=== PATIENT | female | born 1985 | race Caucasian/White ===

== ENCOUNTER → 2016-09-08 | Outpatient (CLI) | payer OTHER ==
[~2016-09-08] MED LIST: MEDR4PAK3 PO; PRENCAP6 PO; ZITH250T PO
[2016-09-08 12:49] LABS: BETA HCG QUANT 4033 MIU/ML (0-5)
== END ==
LOC: CLAB 11:51
PROVIDERS: ATTEND Obstetrics & Gynecology
DX: O26.20 Pregnancy care for patient with recurrent pregnancy loss, unspecified trimester (principal); Z32.00 Encounter for pregnancy test, result unknown
CPT/HCPCS: 36415; 84144; 84702

== ENCOUNTER → 2016-09-16 | Outpatient (CLI) | payer OTHER ==
[2016-09-16 11:03] LABS: AUTOMATED NEUTROPHIL # 4.5 TH/MM3 (1.8-7.7); BASOPHIL % 0.4 % (0.0-2.0); EOSINOPHIL % 0.3 % (0.0-4.0); HEMATOCRIT 38.9 % (35.0-46.0); HEMO FLAGS DIFF FINAL; LYMPH % 22.7 % (9.0-44.0); LYMPHOCYTE # 1.4 TH/MM3 (1.0-4.8); MEAN CELL VOLUME 93.5 FL (80.0-100.0); MEAN CORPUSCULAR HGB CONC 33.2 % (32.0-36.0); NEUT % 71.6 % (16.0-70.0); PLATELET COUNT 247 TH/MM3 (150-450); RED BLOOD COUNT 4.16 MIL/MM3 (4.00-5.30); RED CELL DISTRIBUTION WIDTH 12.4 % (11.6-17.2); WHITE BLOOD COUNT 6.2 TH/MM3 (4.0-11.0)
[2016-09-16 11:07] LABS: BLOOD, URINE NEG (NEG); GLUCOSE,URINE NEG (NEG); KETONE, URINE NEG (NEG); NITRITE,URINE NEG (NEG); SQUAMOUS EPITHELIAL CELL URINE <1 /hpf (0-5); URINE COLOR YELLOW (YELLW/STRAW)
[2016-09-16 11:08] LABS: COMMENT (UR) CULT NOT INDICATED; CULTURE IF INDICATED CULT NOT INDICATED
[2016-09-16 11:40] LABS: RUBELLA IGG ANTIBODY 85.2 IU/mL (10.0-500.0); RUBELLA STATUS IMMUNE (IMMUNE)
[2016-09-16 11:47] LABS: FREE T4 0.95 NG/DL (0.76-1.46)
[2016-09-17 09:45] LABS: RAPID PLASMA REAGIN SCREEN NON-REACTIVE (NON-REACTVE)
== END ==
LOC: CLAB 10:20
PROVIDERS: ATTEND Obstetrics & Gynecology
DX: Z13.9 Encounter for screening, unspecified (principal); Z11.4 Encounter for screening for human immunodeficiency virus [HIV]; Z13.228 Encounter for screening for other metabolic disorders; Z33.1 Pregnant state, incidental
CPT/HCPCS: 36415; 81001; 84439; 84443; 84480; 85025; 86592; 86703; 86762; 86850; 86900; 86901; 87340

== ENCOUNTER → 2016-10-29 | Outpatient (CLI) | payer OTHER | LOC: HPND 09:04 | PROVIDERS: ATTEND Obstetrics & Gynecology | DX: O03.4 Incomplete spontaneous abortion without complication (principal) | CPT/HCPCS: 36416; 76813 ==

== ENCOUNTER → 2016-12-02 | Outpatient (CLI) | payer OTHER | LOC: HPND 09:11 | PROVIDERS: ATTEND Obstetrics & Gynecology | DX: O44.42 Low lying placenta NOS or without hemorrhage, second trimester (principal); Z3A.17 17 weeks gestation of pregnancy | CPT/HCPCS: 76805 ==

== ENCOUNTER → 2017-01-26 | Outpatient (CLI) | payer OTHER | LOC: HPND 07:46 | PROVIDERS: ATTEND Obstetrics & Gynecology | DX: O44.42 Low lying placenta NOS or without hemorrhage, second trimester (principal); Z3A.25 25 weeks gestation of pregnancy | CPT/HCPCS: 76816; 76817 ==

== ENCOUNTER → 2017-02-06 | Outpatient (CLI) | payer OTHER ==
[2017-02-06 11:11] LABS: HEMATOCRIT 35.8 % (35.0-46.0); MEAN CELL VOLUME 95.8 FL (80.0-100.0); MEAN CORPUSCULAR HEMOGLOBIN 32.9 PG (27.0-34.0); MEAN CORPUSCULAR HGB CONC 34.4 % (32.0-36.0); PLATELET COUNT 263 TH/MM3 (150-450); RED BLOOD COUNT 3.74 MIL/MM3 (4.00-5.30); RED CELL DISTRIBUTION WIDTH 13.2 % (11.6-17.2); REVIEW FLAG FINAL; WHITE BLOOD COUNT 9.6 TH/MM3 (4.0-11.0)
[2017-02-10 15:53] LABS: MEASLES AB IGG <25.00 AU/mL (<25.00)
[2017-02-10 23:51] LABS: MEASLES AB IGM <1:20 (<1:20)
== END ==
LOC: CLAB 09:52
PROVIDERS: ATTEND Obstetrics & Gynecology
DX: R74.0 Nonspecific elevation of levels of transaminase and lactic acid dehydrogenase [LDH] (principal); Z13.9 Encounter for screening, unspecified; Z33.1 Pregnant state, incidental
CPT/HCPCS: 36415; 82951; 85027; 86765

== ENCOUNTER → 2017-04-09 | Outpatient (CLI) | payer OTHER | LOC: HPND 09:39 | PROVIDERS: ATTEND Obstetrics & Gynecology | DX: O26.843 Uterine size-date discrepancy, third trimester (principal); O44.03 Complete placenta previa NOS or without hemorrhage, third trimester | CPT/HCPCS: 76816 ==

== ENCOUNTER 2017-05-01 10:22 | Inpatient (IN) | payer OTHER ==
[2017-05-01] VITALS (9 sets, daily range): BP systolic 106–121; BP diastolic 62–74; PULSE 69–91; RESP 18; TEMP 97.7–98.2; O2SAT 97
[~2017-05-01] VITALS: Ht 177.8 cm; Wt 79.4 kg
[2017-05-01] MEDS ORDERED: LACTATED RINGER'S 1000 ML INJ 1,000 ML IV PRN (11:03)
--- NOTE | 2017-05-01 11:13 | PD ---
HPI Chief Complaint LOF Date Seen: May 01, 2017 Time Seen: 11:06 Travel History International Travel<30 Days: No Contact w/Intl Traveler<30Days: No Known Affected Area: No History of Present Illness HPI Pt is a 32y/o @ 39.1wks. She has PNC with Dr. Akers. She presents reporting that she woke up this morning at 7am and had +LOF. She denies VB. Only occasional ctx which are not painful. +FM. No complications this preg. H /o PROM with G1 requiring IOL. GBS neg. Was 2cm/70 in clinic Thursday. Weeks Gestation: 39 Para: 1 : 3 History Past Medical History Medical History: Denies Significant Hx Obstetric History Obstetric History 1. @ term (PROM IOL) 2. SAB (D&C) 3. current Past Surgical History Narrative Surgical wisdom teeth extraction D&C Family History Family History: Negative Social History Alcohol Use: No Tobacco Use: No Substance Abuse: No Allergies-Medications (Allergen,Severity, Reaction): Coded Allergies: No Known Allergies (Verified , 02/12/16) Home Meds Active Scripts Azithromycin (Zithromax Z-Rakesh) 250 Mg Tab, 250 MG PO DIRECTED, #6 TAB 0 Refills 500 MG (2 TABLETS) PO ON DAY 1, THEN 250 MG (1 TABLET) PO ON DAYS 2 TO 5. Prov:Dinorah Trujillo 02/12/16 Methylprednisolone (Medrol Dosepak) 4 Mg Rakesh, 4 MG PO DIRECTED, #1 RAKESH 0 Refills TAKE DIRECTED Prov:Dinorah Trujillo 02/12/16 Reported Medications Mv & Min W/Fe Fumarat ( 1) Cap, 1 CAP PO, CAP 02/01/16 Review of Systems Except as stated in HPI: all other systems reviewed are Neg Physical Exam Narrative General: well developed, well nourished, no acute distress HEENT: normocephalic atraumatic, extraocular movements intact, neck supple Abdomen: soft, gravid, nontender, nondistended Uterus: fundus term Extremities: full range of motion Skin: normal coloration, no rashes, no suspicious skin lesions noted Neurologic: cranial nerves 2-12 grossly intact, normal muscle tone, normal gait Psychiatric: normal mood and affect, appropriate FHTs: 130s, +accels, early decel x1, moderate variability, reactive Lyman: irregular ctx q5-7m Cvx: 3/80/-2 Data Data Vital Signs Reviewed: Yes Orders Orders Ob (2e) Additional Admit Info (05/01/17 10:53) Vital Signs (Adult) .ON ADMISSION (05/01/17 11:03) ^ Labor Status (05/01/17 11:03) ^ Non Stress Test (05/01/17 11:03) Pamg-1 Test .ONCE (05/01/17 11:03) Admit To Inpatient (05/01/17 ) Vital Signs (Adult) .Per protocol (05/01/17 11:03) Heart (05/01/17 11:03) Amnioinfusion (05/01/17 11:03) Urinary Catheter Management .ONCE (05/01/17 11:03) Diet Liquid (05/01/17 Lunch) Lactated Ringer's 1000 Ml Inj (Lr 1000 M (05/01/17 11:03) Lactated Ringer's 1000 Ml Inj (Lr 1000 M (05/01/17 11:03) Sodium Chlorid 0.9% 500 Ml Inj (Ns 500 M (05/01/17 11:15) Sodium Chlor 0.9% 1000 Ml Inj (Ns 1000 M (05/01/17 11:23) Lidocaine 1% Inj (50 Ml) (Xylocaine 1% I (05/01/17 11:15) Citric Acid-Sodium Citrate Liq (Bicitra (05/01/17 11:15) Fentanyl Inj (Fentanyl Inj) (05/01/17 11:15) Fentanyl Inj (Fentanyl Inj) (05/01/17 11:15) Complete Blood Count With Diff (05/01/17 11:03) Hold Clot (05/01/17 11:03) Abo/Rh Blood Type (05/01/17 11:03) Urinalysis - C+S If Indicated (05/01/17 11:03) Drug Screen, Random Urine (05/01/17 11:03) Lidocaine 1% Inj (50 Ml) (Xylocaine 1% I (05/01/17 11:15) Light Mineral Oil (Muri-Lube Oil) (05/01/17 11:15) Inpatient Certification (05/01/17 ) Specimen To Be Collected PRN (05/01/17 11:03) Specimen To Be Collected PRN (05/01/17 11:03) Response To Medication .Post New Med Administration, Reaction (05/01/17 11:03) ^ Discontinue Medication (05/01/17 11:03) Oxytocin 30 Units-500ml Premix (Pitocin (05/01/17 11:15) Resp Oxygen Non Rebreathe Mask (05/01/17 ) ^ Epidural / Intrathecal Infus (05/01/17 11:03) Oxytocin 30 Units-500ml Premix (Pitocin (05/01/17 11:15) Group B Strep: Negative MDM Plan 32y/o @ 39.1wks with PROM -- admit to L&D -- clears, epidural/gardner PRN -- FHTs cat 2, moderate variability with early decel -- pitocin IOL -- GBS neg Dr. Bhardwaj (distributor sales consultant) notified of pt status and POC. He will assume care of the pt. Courtesy orders placed. Diagnosis Diagnosis: Primary Impression: 39 weeks gestation of Additional Impression: PROM (premature rupture of membranes) Milli Burkett MD May 01, 2017 11:13
[2017-05-01] MEDS ORDERED: OXYTOCIN 30 UNITS-500ML PREMIX 500 ML IV SCH ×2 (11:15→18:45)
[2017-05-01] MEDS ORDERED: CITRIC ACID-SODIUM CITRATE LIQ 30 ML UDC PO SCH (11:15)
[2017-05-01] MEDS ORDERED: OXYTOCIN 30 UNITS-500ML PREMIX 500 ML IV ONE (11:15)
[2017-05-01] MEDS ORDERED: LIDOCAINE HCL 1% 50 ML VIAL I-DERMAL PRN (11:15)
[2017-05-01] MEDS ORDERED: SODIUM CHLORID 0.9% 500 ML INJ 500 ML IV PRN (11:15)
[2017-05-01] MEDS ORDERED: MINERAL OIL 10 ML VIAL TOPICAL PRN (11:15)
[2017-05-01] MEDS ORDERED: LIDOCAINE HCL 1% 50 ML VIAL INFIL PRN (11:15)
[2017-05-01] MEDS ORDERED: SODIUM CHLOR 0.9% 1000 ML INJ 1,000 ML IV PRN (11:23)
[2017-05-01 11:47] LABS: AUTOMATED NEUTROPHIL # 7.6 TH/MM3 (1.8-7.7); BASOPHIL % 0.1 % (0.0-2.0); EOSINOPHIL % 0.3 % (0.0-4.0); HEMATOCRIT 34.8 % (35.0-46.0); HEMO FLAGS DIFF FINAL; LYMPHOCYTE # 1.5 TH/MM3 (1.0-4.8); MEAN CELL VOLUME 94.3 FL (80.0-100.0); MEAN CORPUSCULAR HEMOGLOBIN 33.4 PG (27.0-34.0); MEAN CORPUSCULAR HGB CONC 35.4 % (32.0-36.0); MONO % 4.9 % (0.0-8.0); NEUT % 78.7 % (16.0-70.0); PLATELET COUNT 243 TH/MM3 (150-450); RED BLOOD COUNT 3.68 MIL/MM3 (4.00-5.30); RED CELL DISTRIBUTION WIDTH 13.9 % (11.6-17.2); WHITE BLOOD COUNT 9.6 TH/MM3 (4.0-11.0)
[2017-05-01 11:47] LABS: BLOOD, URINE NEG (NEG); GLUCOSE,URINE NEG (NEG); KETONE, URINE NEG (NEG); NITRITE,URINE NEG (NEG); SQUAMOUS EPITHELIAL CELL URINE <1 /hpf (0-5); URINE COLOR LIGHT-YELLOW (YELLW/STRAW)
[2017-05-01 11:49] LABS: COMMENT (UR) CULT NOT INDICATED; CULTURE IF INDICATED CULT NOT INDICATED
[2017-05-01] MEDS: LACTATED RINGER'S 1000 ML INJ 1,000 ML IV SCH (12:00)
--- NOTE | 2017-05-01 15:56 | MH ---
cc: [facility]LET N[facility] DATE OF ADMISSION: 05/01/2017; The time is 02:20 p.m. HISTORY: The patient is 22-year-old white female para 1-0-1-1 with a LMP of 07/31/2016, EDC of 05/08/2017. Her preop course has been benign. She awoke at 07:00 a.m. this morning with small quantity of fluid per vagina and came into the OB unit for evaluation positive ROM . She had failed to develop labor is now on Pitocin augmentation admitted by Dr. Gandara for co this morning. Her preop course was benign. Her past medical history of previous surgery none. MEDICATIONS Vitamins. ALLERGIES NONE. TRANSFUSIONS NONE. OBSTETRICAL HISTORY Previous term delivery. GBS negative this . SOCIAL HISTORY She is homemaker. Alcohol, tobacco and drugs are none. PHYSICAL EXAMINATION: IN GENERAL: A well-nourished well-developed white female. VITAL SIGNS: The vital signs are stable. HEAD, EYES, EARS, NOSE, AND THROAT: Exam is normal. CHEST: The chest is clear regular rate. BREASTS: The breasts are symmetrical. ABDOMEN: The abdomen benign. Gravid. EFW of 3300 gm. Cervix is now 03, forwaters nieves are ruptured. EXTREMITIES: Normal. ASSESSMENT/PLAN: As above. She is now admitted for delivery, this is vaginal delivery. MD SARA Rainey/zoe /2:15 PM /3:33 PM [facility]
[2017-05-01] MEDS ORDERED: DIPHTH/TETANUS/ACEL PERTUSSIS (BOOSTER) 0.5 ML VIAL/PFS IM ONE (16:00)
[2017-05-01] MEDS ORDERED: MEASLES, MUMPS, RUBELLA VACCINE 0.5 ML VIAL SQ ONE (16:00)
[2017-05-01] MEDS ORDERED: DOCUSATE SODIUM 50 MG/SENNA 8.6 MG TAB PO PRN (18:45)
[2017-05-01] MEDS ORDERED: BENZOCAINE 20% TOPICAL SPRAY 60 ML CAN TOPICAL PRN (18:45)
[2017-05-01] MEDS ORDERED: ONDANSETRON ODT 4 MG TAB PO PRN (18:45)
[2017-05-01] MEDS ORDERED: ACETAMINOPHEN 325 MG TAB PO PRN (18:45)
[2017-05-01] MEDS ORDERED: oxyCODONE/ACETAMINOPHEN 5 MG/325 MG TAB PO PRN ×2 (18:45)
[2017-05-01] MEDS ORDERED: SODIUM CHLORIDE 0.9% FLUSH 10 ML FLUSH IV FLUSH PRN (18:45)
[2017-05-01] MEDS ORDERED: ZOLPIDEM TARTRATE 5 MG TAB PO PRN (18:45)
[2017-05-01] MEDS ORDERED: ALUMINUM/MAGNESIUM/SIMETH 30 ML CUP PO PRN (18:45)
[2017-05-01] MEDS ORDERED: WITCH HAZEL 50%/GLYCERIN 12.5% 40 PAD JAR TOPICAL PRN (18:45)
[2017-05-01] MEDS: SODIUM CHLORIDE 0.9% FLUSH 10 ML FLUSH IV FLUSH SCH (21:00)
[2017-05-01] MEDS: IBUPROFEN 800 MG TAB PO PRN (21:07)
[2017-05-02] MEDS: LACTATED RINGER'S 1000 ML INJ 1,000 ML IV SCH ×2 (03:03→19:03)
[2017-05-02] MEDS: IBUPROFEN 800 MG TAB PO PRN ×2 (05:29→13:43)
[2017-05-02 08:00] VITALS: BP 111/71; PULSE 69; RESP 18; RESP 8; TEMP 97.9; O2SAT 97
[2017-05-02 08:46] LABS: AUTOMATED NEUTROPHIL # 11.6 TH/MM3 (1.8-7.7); BASOPHIL % 0.2 % (0.0-2.0); EOSINOPHIL # 0.1 TH/MM3 (0-0.4); EOSINOPHIL % 0.4 % (0.0-4.0); HEMATOCRIT 36.7 % (35.0-46.0); HEMO FLAGS DIFF FINAL; LYMPH % 13.8 % (9.0-44.0); MEAN CELL VOLUME 94.7 FL (80.0-100.0); MEAN CORPUSCULAR HEMOGLOBIN 32.1 PG (27.0-34.0); MEAN CORPUSCULAR HGB CONC 33.9 % (32.0-36.0); MONO % 4.5 % (0.0-8.0); NEUT % 81.1 % (16.0-70.0); PLATELET COUNT 238 TH/MM3 (150-450); RED BLOOD COUNT 3.88 MIL/MM3 (4.00-5.30); WHITE BLOOD COUNT 14.3 TH/MM3 (4.0-11.0)
--- NOTE | 2017-05-02 11:55 | HHI.DCPOC ---
Discharge Care Plan Report Symptoms to Your Doctor -Temperature above 100.5 degrees -Redness, of incision or excessive or foul smelling drainage -Unusual pain or calf pain -Increased vaginal bleeding -Painful or difficulty urinating -Feelings of extreme sadness or anxiety after 2 weeks Goals to Promote Your Health * To prevent worsening of your condition and complications * To maintain your health at the optimal level Directions to Meet Your Goals Take your medications as prescribed Follow your dietary instruction Follow activity as directed Ensure plenty of rest for recovery Drink fluids for hydration Keep your appointments as scheduled Take your immunizations and boosters as scheduled If your symptoms worsen call your PCP, if no PCP go to Urgent Care Center or Emergency Room Smoking is Dangerous to Your Health. Avoid second hand smoke Call the 24-hour crisis hotline for domestic abuse at Rei Akers MD May 02, 2017 11:55
[2017-05-02] MEDS: SODIUM CHLORIDE 0.9% FLUSH 10 ML FLUSH IV FLUSH SCH (19:31)
--- NOTE | 2017-05-04 16:36 | MD ---
cc: ARLET N[facility] ADMISSION DATE: 05/01/2017 DISCHARGE DATE: 05/02/2017 ADMISSION DIAGNOSIS Term with spontaneous rupture of membranes. DISCHARGE DIAGNOSIS Term with spontaneous rupture of membranes, delivered. HOSPITAL COURSE A 22-year-old white female para 1-0-1-1 with EDC of 05/08/2017. She had spontaneous rupture of membranes at 07:00 a.m. on the day of admission, was admitted, begun on Pitocin augmentation of labor, progressed to a spontaneous vaginal delivery over an intact perineum, a viable, vigorous female, Apgars 8 and 9, weight 7 pounds, 6 ounces. The baby's name was Krystel Murray and she was breast-feeding. She had a small posterior fourchette tear repaired with 3-0 chromic. She was discharged home on 05/02/2017. Her pre and post-delivery labs were normal. GBS was negative. DISCHARGE INSTRUCTIONS She was advised NPV, light activity, return to see me in 6 weeks. To call for any abnormal symptoms. MD SARA Rainey/SSB /11:45 AM /4:16 PM
== END 2017-05-02 21:00 | disposition home or self-care (01) | DRG 775 ==
LOC: HOBED 10:22 → H2EB 10:58 → H1EA 21:30
PROVIDERS: ADMIT Obstetrics & Gynecology; ATTEND Obstetrics & Gynecology
PROC: 10E0XZZ Delivery of Products of Conception, External Approach (ICD-10-PCS; principal; 2017-05-01)
PROC: 0HQ9XZZ Repair Perineum Skin, External Approach (ICD-10-PCS; 2017-05-01)
DX: O42.92 Full-term premature rupture of membranes, unspecified as to length of time between rupture and onset of labor (principal); O70.0 First degree perineal laceration during delivery; Z3A.39 39 weeks gestation of pregnancy; Z37.0 Single live birth
CPT/HCPCS: 59025; 80307; 81001; 84112; 85025; J2590; J7120

== ENCOUNTER 2017-05-04 20:11 | Emergency (ER) | payer OTHER ==
[~2017-05-04] VITALS: Ht 177.8 cm; Wt 77.1 kg
[~2017-05-04 20:11] MED LIST changes: -MEDR4PAK3 PO; -ZITH250T PO
[2017-05-04 20:23] VITALS: BP 112/70; PULSE 67; RESP 18; TEMP 97.6
--- NOTE | 2017-05-04 20:50 | PD ---
HPI Chief Complaint Left leg redness and pain Date Seen: May 04, 2017 Time Seen: 20:46 Travel History International Travel<30 Days: No Contact w/Intl Traveler<30Days: No Known Affected Area: No History of Present Illness HPI Patient is a 32-year-old who is currently 3 days from a spontaneous vaginal delivery without complications who comes in complaining of redness at the flexion point on the inside of the left upper associated with a varicosity. Patient states that she was plagued with varicose veins during this with worsening in her third trimester. His had mild pain right on the site of the varicose vein associated with slight erythema of her skin. She can feel a little hardening right underneath her skin. Patient denies a history of thrombosed embolism in the past and denies the necessity of bed rest during the . She has no family history of blood clots. Para: 2 : 3 History Obstetric History Obstetric History Spontaneous vaginal delivery 2 Past Surgical History Narrative Surgical DNC Family History Family History: Negative Social History Alcohol Use: No Tobacco Use: No Substance Abuse: No Allergies-Medications (Allergen,Severity, Reaction): Coded Allergies: No Known Allergies (Verified Allergy, Unknown, 05/04/17) Home Meds Reported Medications Mv & Min W/Fe Fumarat ( 1) 30 Mg-975 Mcg-200 Mg Cap, 1 CAP PO, CAP 02/01/16 Discontinued Scripts Azithromycin (Zithromax Z-Sanjay) 250 Mg Tab, 250 MG PO DIRECTED, #6 TAB 0 Refills 500 MG (2 TABLETS) PO ON DAY 1, THEN 250 MG (1 TABLET) PO ON DAYS 2 TO 5. Prov:Dinorah Trujillo 02/12/16 Methylprednisolone (Medrol Dosepak) 4 Mg Sanjay, 4 MG PO DIRECTED, #1 SANJAY 0 Refills TAKE DIRECTED Prov:Dinorah Trujillo 02/12/16 Review of Systems Except as stated in HPI: all other systems reviewed are Neg Physical Exam Vital Signs Date Time Temp Pulse Resp B/P (MAP) Pulse Ox O2 Delivery O2 Flow Rate FiO2 05/04/17 20:23 97.6 67 18 112/70 (84) Narrative GENERAL: Well-nourished, well-developed patient. SKIN: Warm and dry. HEAD: Normocephalic and atraumatic. EYES: No scleral icterus. No injection or drainage. ENT: No nasal drainage noted. Mucous membranes pink. Airway patent. NECK: Supple, trachea midline. No JVD. CARDIOVASCULAR: Regular rate and rhythm without murmurs, gallops, or rubs. RESPIRATORY: Breath sounds equal bilaterally. No accessory muscle use. EXTREMITIES: No cyanosis or edema. Patient with equal bilateral dorsalis pedis pulses. Slight erythema at the flexion point of the left calf proximally 1 cm with a varicosity just under the skin BACK: Nontender without obvious deformity. No CVA tenderness. NEUROLOGICAL: Awake and alert. Motor and sensory grossly within normal limits. Five out of 5 muscle strength in all muscle groups. Normal speech. Data Data Orders Orders Us Leg Venous Doppler (05/04/17 ) Labs Last 24 hours Impressions Lower Extremity Ultrasound 05/04/17 0000 Signed Impressions: Service Date/Time: Thursday, May 04, 2017 21:26 - CONCLUSION: 1. No evidence of left lower extremity DVT. 2. Superficial vein thrombosis involving the greater saphenous vein and proximal calf. Mehran Quevedo MD [facility] Medical Record Reviewed: Yes Plan patient with superficial thrombus Baby aspirin daily Ibuprofen, elevation, and local heat Thromboembolic precautions given Follow up with physician within 48 hours Diagnosis Diagnosis: Primary Impression: Superficial thrombophlebitis Additional Impression: examination following vaginal delivery Disposition: 01 DISCHARGE HOME Chayo Landers MD May 04, 2017 20:50
--- NOTE | 2017-05-04 22:22 | RADRPT ---
EXAM DATE/TIME: 05/04/2017 21:26 [place] COMPARISON: No previous studies available for comparison. INDICATIONS : Left leg pain and redness. MEDICAL HISTORY : Left leg pain and redness. SURGICAL HISTORY : None. ENCOUNTER: Initial ACUITY: 1 day PAIN SCORE: 2/10 LOCATION: Left leg. TECHNIQUE: Venous ultrasound of the leg was performed from the inguinal ligament to the proximal calf. Real-leif e, color Doppler and spectral tracing, compression and augmentation techniques were used. FINDINGS: There is normal compressibility of the deep venous system from the inguinal region to the proximal ca lf. No echogenic clot is seen in the lumen of the common femoral, femoral, popliteal, and posterior tibial veins. There is a normal response of the venous system to proximal and distal augmentation an d respiration. There is absence of color Doppler flow the greater saphenous vein at the proximal anjel f. CONCLUSION: 1. No evidence of left lower extremity DVT. 2. Superficial vein thrombosis involving the greater saphenous vein and proximal calf. Mehran Quevedo MD on May 04, 2017 at 22:20 Board Certified Radiologist. This report was verified electronically.
== END 2017-05-04 22:38 | disposition home or self-care (01) ==
LOC: HOBED 20:11
DX: O87.0 Superficial thrombophlebitis in the puerperium (principal)
CPT/HCPCS: 93971; 99284